=== PATIENT | female | born 1985 | race Two or more races ===

== ENCOUNTER 2022-01-10 06:41 | Emergency (ER) | payer MEDICAID, OTHER ==
[~2022-01-10] VITALS: Ht 167.6 cm; Wt 71.0 kg
[2022-01-10 06:42] VITALS: BP 135/85
== END 2022-01-10 08:20 | disposition left against medical advice (07) ==
LOC: EEVIPCON 06:41 → ER 06:41
DX: R10.2 Pelvic and perineal pain (principal); Z53.21 Procedure and treatment not carried out due to patient leaving prior to being seen by health care provider